=== PATIENT | female | born 1930 | race Hispanic/Latino ===

== ENCOUNTER 2018-10-31 14:08 | Inpatient (IN) | payer OTHER ==
[~2018-10-31] VITALS: Ht 165.1 cm; Wt 61.2 kg
[2018-10-31 15:58] LABS: BASOPHILS % (AUTO) 0.3 % (0.0-5.0); EOSINOPHILS % (AUTO) 0.7 % (0.0-8.0); LYMPHOCYTES % (AUTO) 8.2 % (21.0-51.0); MEAN CORPUSCULAR HEMOGLOBIN 31.5 pg (27.0-33.0); MEAN CORPUSCULAR HGB CONC 33.3 g/dL (32.0-36.0); MEAN CORPUSCULAR VOLUME 94.6 fL (79-99); MONOCYTES % (AUTO) 5.4 % (3.0-13.0); NEUTROPHILS % (AUTO) 85.4 % (40.0-77.0); PLATELET COUNT (AUTO) 178 K/uL (130-400); RED BLOOD CELL COUNT(AUTO) 4.33 MIL/uL (4.00-5.50); RED CELL DISTRIBUTION WIDTH 14.7 % (11.0-15.5); WHITE BLOOD COUNT (AUTO) 10.4 K/uL (4.8-10.8)
[2018-10-31 16:15] LABS: CREATININE 0.8 mg/dL (0.5-1.5); POTASSIUM 3.8 mmol/L (3.5-5.1)
[2018-10-31] MEDS ORDERED: SODIUM CHLORIDE 0.9% 1000ML 1,000 ML IV SCH (17:39)
[2018-10-31] MEDS ORDERED: LACTULOSE 20 GM/30 ML UDCUP PO PRN (17:45)
[2018-10-31] MEDS ORDERED: ONDANSETRON HCL 4 MG/2 ML VIAL IV PRN (17:45)
[2018-10-31 20:00] VITALS: BP 140/63
[2018-10-31 23:55] VITALS: BP 135/63
[2018-11-01] VITALS (7 sets, daily range): BP systolic 113–154; BP diastolic 61–73
[2018-11-01 05:06] LABS: HEMATOCRIT 38.2 % (36-48); MEAN CORPUSCULAR HEMOGLOBIN 32.7 pg (27.0-33.0); MEAN CORPUSCULAR HGB CONC 34.6 g/dL (32.0-36.0); MEAN CORPUSCULAR VOLUME 94.6 fL (79-99); PLATELET COUNT (AUTO) 132 K/uL (130-400); RED BLOOD CELL COUNT(AUTO) 4.04 MIL/uL (4.00-5.50); RED CELL DISTRIBUTION WIDTH 14.8 % (11.0-15.5); WHITE BLOOD COUNT (AUTO) 8.5 K/uL (4.8-10.8)
[2018-11-01 05:16] LABS: ALBUMIN 2.9 g/dL (3.5-5.0); BILIRUBIN,TOTAL 1.1 mg/dL (0.2-1.0); CREATININE 0.7 mg/dL (0.5-1.5); POTASSIUM 3.5 mmol/L (3.5-5.1); TOTAL PROTEIN, SERUM 5.9 g/dL (6.0-8.3)
[2018-11-01] MEDS: FAMOTIDINE/PF 20 MG/2 ML VIAL IV SCH (09:44)
[2018-11-01] MEDS: ENOXAPARIN SODIUM 40 MG/0.4 ML SYRINGE SQ SCH (09:45)
--- NOTE | 2018-11-01 13:34 | NUR ---
DCP CM met with pt and family discussed dc plans. Pt is semi-independent prior to fall and admission, lives at home with spouse and son. Has a cane, shower chair, and walker. Denies any other equipments/services. Pt feels safe to go back home, son and spouse able to assist with transportation and needs as necessary. Offered possible short term placement for rehab, pt and family willing to consider, given in network SNF facilities. Patient and family stated no [facility], but willing to consider [facility] or [facility], would like to discuss w/MD first and with family, then will decide once closer to dc. Given direct contact #[phone] of CM once pt and family decide. DC plan to home vs SNF. Primary nurse aware. CM to cont to follow up. Addendum: 11/01/18 at 1337 by RITESH PELAYO LVN CM Amended: Links added.
[2018-11-01] MEDS: ACETAMINOPHEN 325 MG TAB PO PRN (15:51)
[2018-11-02 03:39] VITALS: BP 135/65
[2018-11-02 04:52] LABS: HEMATOCRIT 36.2 % (36-48); MEAN CORPUSCULAR HEMOGLOBIN 32.2 pg (27.0-33.0); MEAN CORPUSCULAR HGB CONC 34.1 g/dL (32.0-36.0); MEAN CORPUSCULAR VOLUME 94.3 fL (79-99); PLATELET COUNT (AUTO) 129 K/uL (130-400); RED BLOOD CELL COUNT(AUTO) 3.84 MIL/uL (4.00-5.50); RED CELL DISTRIBUTION WIDTH 14.6 % (11.0-15.5); WHITE BLOOD COUNT (AUTO) 7.5 K/uL (4.8-10.8)
[2018-11-02 05:01] LABS: CREATININE 0.7 mg/dL (0.5-1.5); POTASSIUM 3.3 mmol/L (3.5-5.1)
[2018-11-02 08:00] VITALS: BP 142/64
[2018-11-02] MEDS: ENOXAPARIN SODIUM 40 MG/0.4 ML SYRINGE SQ SCH (11:22)
[2018-11-02] MEDS: FAMOTIDINE/PF 20 MG/2 ML VIAL IV SCH (11:22)
[2018-11-02] MEDS: ACETAMINOPHEN 325 MG TAB PO PRN (11:22)
[2018-11-02 11:41] VITALS: BP 128/57
--- NOTE | 2018-11-02 12:52 | NUR ---
SNF In to speak w pt/family regarding SNF. Per pt and family they are now considering the possibility of taking pt up to [place] to receive rehab and be closer to family. Per pt/family they are not ready to sign DAVON/PC consent for local SNFs yet and will inform CM of decision once they discuss options further.
[2018-11-02 16:00] VITALS: BP 128/59
[2018-11-02 20:00] VITALS: BP 141/73
[2018-11-02] MEDS: POTASSIUM CHLORIDE 20 MEQ ERTAB PO SCH (22:44)
[2018-11-03] VITALS (7 sets, daily range): BP systolic 123–151; BP diastolic 61–75
[2018-11-03 05:14] LABS: HEMATOCRIT 36.2 % (36-48); MEAN CORPUSCULAR HEMOGLOBIN 32.1 pg (27.0-33.0); MEAN CORPUSCULAR HGB CONC 34.2 g/dL (32.0-36.0); MEAN CORPUSCULAR VOLUME 93.8 fL (79-99); PLATELET COUNT (AUTO) 147 K/uL (130-400); RED BLOOD CELL COUNT(AUTO) 3.86 MIL/uL (4.00-5.50); RED CELL DISTRIBUTION WIDTH 14.6 % (11.0-15.5); WHITE BLOOD COUNT (AUTO) 6.1 K/uL (4.8-10.8)
[2018-11-03 05:18] LABS: CREATININE 0.6 mg/dL (0.5-1.5); POTASSIUM 3.6 mmol/L (3.5-5.1)
[2018-11-03] MEDS: FAMOTIDINE/PF 20 MG/2 ML VIAL IV SCH (09:28)
[2018-11-03] MEDS: ACETAMINOPHEN 325 MG TAB PO PRN ×2 (09:28→20:49)
[2018-11-03] MEDS: POTASSIUM CHLORIDE 20 MEQ ERTAB PO SCH (09:29)
[2018-11-03] MEDS: ENOXAPARIN SODIUM 40 MG/0.4 ML SYRINGE SQ SCH (09:29)
--- NOTE | 2018-11-03 16:30 | NUR ---
SNF UPDATE: CM f/u w pt/family regarding DCP. Per family ok to refer to SNF in the [facility]. DAVON/PC consent signed for [facility] and [facility]. Call placed to [facility].-per staff they do not have access to the fax number in administrative office for new referrals states will have to callback tomorrow. Fax number obtained for [facility]. Clinical/PASRR faxed, per staff administration will be avail tomorrow to eval. Informed pt and family that dt weekend ins benefits/in-network facilities are not able to be verified until tomorrow. Informed them that facility would have to complete eval and accept pt as well as ins would have to approve admission. They verbalize understanding. Per family they will be able to drive pt up to the [facility]. Informed Dr. Gallego of pt/family request for SNF in the [facility].
[2018-11-03] MEDS: DOCUSATE SODIUM 100 MG CAP PO SCH (20:50)
[2018-11-04 03:30] VITALS: BP 147/68
[2018-11-04 05:29] LABS: HEMATOCRIT 35.8 % (36-48); MEAN CORPUSCULAR HEMOGLOBIN 31.4 pg (27.0-33.0); MEAN CORPUSCULAR HGB CONC 33.8 g/dL (32.0-36.0); MEAN CORPUSCULAR VOLUME 92.8 fL (79-99); NUCLEATED RED BLOOD CELLS 0.1 % (0.0-0.19); PLATELET COUNT (AUTO) 201 K/uL (130-400); RED BLOOD CELL COUNT(AUTO) 3.86 MIL/uL (4.00-5.50); RED CELL DISTRIBUTION WIDTH 14.8 % (11.0-15.5); WHITE BLOOD COUNT (AUTO) 4.8 K/uL (4.8-10.8)
[2018-11-04 05:42] LABS: CREATININE 0.6 mg/dL (0.5-1.5); POTASSIUM 3.5 mmol/L (3.5-5.1)
--- NOTE | 2018-11-04 07:50 | NUR ---
RECEIVED IN BED SEMI-MONGE'S POSITION ALERT AND AWAKE WITH NO RESPIRATORY DISTRESS ON ROOM AIR. SPOUSE IS AT THE BEDSIDE ATTENDING TO HER. PATIENT DENIES PAIN AT THIS TIME. PLAN OF CARE DISCUSSED.
[2018-11-04 08:00] VITALS: BP 153/70
[2018-11-04] MEDS: DOCUSATE SODIUM 100 MG CAP PO SCH ×2 (08:39→20:43)
[2018-11-04] MEDS: FAMOTIDINE/PF 20 MG/2 ML VIAL IV SCH (08:39)
[2018-11-04] MEDS: ENOXAPARIN SODIUM 40 MG/0.4 ML SYRINGE SQ SCH (08:42)
--- NOTE | 2018-11-04 09:55 | NUR ---
PHYSICAL THERAPIST CAME TO EVALUATE THE PATIENT AND ASSISTED HER IN THE CHAIR. FAMILY IS PRESENT AT THE BEDSIDE.
[2018-11-04 11:00] VITALS: BP 134/71
[2018-11-04] MEDS: ACETAMINOPHEN 325 MG TAB PO PRN ×2 (11:00→20:42)
[2018-11-04 16:00] VITALS: BP 148/77
[2018-11-04 19:46] VITALS: BP 152/73
--- NOTE | 2018-11-04 20:07 | NUR ---
cm snf ptsdaughter and son present, wish to go [facility] ,per alix,/ have okayed for her to travel by vehicle. Dtr aware they would have to pay for EMS transport , unless they ok by md private vehicle. they asked this cm to send referrals to [facility] and rehab, and [facility] and rehab, after several referrals, they finally decided 1st choice is to [facility] contact is Jessie WILLARD RN ph#[phone] [facility] [phone] and second choice [facility] ph [phone] contact is anil. Both facilities were contacting pts daughter to be able to submit. For auth. Dtr to decide.
[2018-11-05] VITALS: BP 153/72
[2018-11-05 04:00] VITALS: BP 151/80
[2018-11-05 04:24] LABS: HEMATOCRIT 36.5 % (36-48); MEAN CORPUSCULAR HEMOGLOBIN 32.2 pg (27.0-33.0); MEAN CORPUSCULAR HGB CONC 34.6 g/dL (32.0-36.0); MEAN CORPUSCULAR VOLUME 93.2 fL (79-99); PLATELET COUNT (AUTO) 201 K/uL (130-400); RED BLOOD CELL COUNT(AUTO) 3.92 MIL/uL (4.00-5.50); RED CELL DISTRIBUTION WIDTH 14.5 % (11.0-15.5); WHITE BLOOD COUNT (AUTO) 4.8 K/uL (4.8-10.8)
[2018-11-05 04:42] LABS: CREATININE 0.7 mg/dL (0.5-1.5); POTASSIUM 3.6 mmol/L (3.5-5.1)
[2018-11-05 08:24] VITALS: BP 147/73
[2018-11-05] MEDS: ACETAMINOPHEN 325 MG TAB PO PRN ×2 (08:56→20:48)
[2018-11-05] MEDS: FAMOTIDINE/PF 20 MG/2 ML VIAL IV SCH (08:56)
[2018-11-05] MEDS: DOCUSATE SODIUM 100 MG CAP PO SCH ×2 (08:56→20:43)
[2018-11-05] MEDS: ENOXAPARIN SODIUM 40 MG/0.4 ML SYRINGE SQ SCH (08:57)
[2018-11-05 11:51] VITALS: BP 140/67
[2018-11-05 15:50] VITALS: BP 153/66
[2018-11-05 20:00] VITALS: BP 148/66
[2018-11-06] VITALS: BP 172/76
[2018-11-06 04:00] VITALS: BP 154/61
[2018-11-06 04:44] LABS: HEMATOCRIT 36.2 % (36-48); MEAN CORPUSCULAR HEMOGLOBIN 31.2 pg (27.0-33.0); MEAN CORPUSCULAR HGB CONC 33.5 g/dL (32.0-36.0); MEAN CORPUSCULAR VOLUME 93.2 fL (79-99); PLATELET COUNT (AUTO) 230 K/uL (130-400); RED BLOOD CELL COUNT(AUTO) 3.88 MIL/uL (4.00-5.50); RED CELL DISTRIBUTION WIDTH 14.6 % (11.0-15.5); WHITE BLOOD COUNT (AUTO) 5.4 K/uL (4.8-10.8)
[2018-11-06 04:56] LABS: CREATININE 0.7 mg/dL (0.5-1.5); POTASSIUM 3.5 mmol/L (3.5-5.1)
[2018-11-06 08:00] VITALS: BP 145/74
[2018-11-06] MEDS: DOCUSATE SODIUM 100 MG CAP PO SCH ×2 (10:37→21:31)
[2018-11-06] MEDS: FAMOTIDINE/PF 20 MG/2 ML VIAL IV SCH (10:37)
[2018-11-06] MEDS: ENOXAPARIN SODIUM 40 MG/0.4 ML SYRINGE SQ SCH (10:38)
[2018-11-06] MEDS: ACETAMINOPHEN 325 MG TAB PO PRN (10:39)
--- NOTE | 2018-11-06 10:48 | NUR ---
CM Note: [facility] pending ins auth Spoke to Jessie Serrano RN CM [phone] w/[facility]. Updated clinicals received, pt currently pending ins auth at this time. Primary nurse aware. CM to cont to follow up.
[2018-11-06 11:00] VITALS: BP 138/61
--- NOTE | 2018-11-06 14:17 | NUR ---
RDSCREEN - LOS X 6 Pt admitted for hip fracture. Pt tolerating Soft diet with no report of GI distress and Fair PO intake (50%). Pt LBM 11/04/18. Pt monitored labs: Ca 10.3, Alb 2.9. RD to continue to monitor. Please notify EDIE as nutritional concerns arise. Thank you. Addendum: 11/06/18 at [address] Amended: Links added.
--- NOTE | 2018-11-06 14:26 | NUR ---
CM Note: [facility] Spoke to Germaine anthony/ [facility] . Pt has ins auth good for 48hrs. Aware patient will be a very late admission tomorrow after midnight as son will take pt on a rental vehicle comming from [place]. As per Germaine will have nurse available to accept patient late tomorrow. Primary nurse aware to give report and sent med recon before 5pm prior to pt discharge so that med will be available for pt upon arrival to facility. Primary nurse aware. CM to cont to follow up.
[2018-11-06] MEDS ORDERED: CLONIDINE HCL 0.1 MG TABLET PO PRN (14:45)
[2018-11-06] MEDS ORDERED: AMLODIPINE BESYLATE 5 MG TAB PO SCH (14:45)
[2018-11-06 16:00] VITALS: BP 150/77
[2018-11-06 20:00] VITALS: BP 174/81
[2018-11-07] VITALS: BP 136/58
[2018-11-07 04:04] VITALS: BP 146/67
[2018-11-07 05:02] LABS: HEMATOCRIT 35.9 % (36-48); MEAN CORPUSCULAR HEMOGLOBIN 32.3 pg (27.0-33.0); MEAN CORPUSCULAR HGB CONC 34.7 g/dL (32.0-36.0); MEAN CORPUSCULAR VOLUME 93.1 fL (79-99); PLATELET COUNT (AUTO) 262 K/uL (130-400); RED BLOOD CELL COUNT(AUTO) 3.86 MIL/uL (4.00-5.50); RED CELL DISTRIBUTION WIDTH 14.5 % (11.0-15.5); WHITE BLOOD COUNT (AUTO) 5.8 K/uL (4.8-10.8)
[2018-11-07 05:10] LABS: CREATININE 0.7 mg/dL (0.5-1.5); POTASSIUM 3.4 mmol/L (3.5-5.1)
[2018-11-07] MEDS ORDERED: POTASSIUM CHLORIDE 20 MEQ ERTAB PO ONE (05:57)
[2018-11-07] MEDS ORDERED: POTASSIUM CHLORIDE 20 MEQ ERTAB PO PRN (06:00)
[2018-11-07] MEDS ORDERED: LIDOCAINE HCL-MPF 1% 2ML VIAL IVP PRN (06:00)
[2018-11-07] MEDS ORDERED: POTASSIUM CHLORIDE 10% ELIXIR 20 MEQ/15 ML UDCUP PO PRN (06:00)
[2018-11-07] MEDS ORDERED: POTASSIUM CHLORIDE 20MEQ/100ML 100 ML IV PRN (06:00)
[2018-11-07 08:00] VITALS: BP 144/73
[2018-11-07] MEDS: FAMOTIDINE/PF 20 MG/2 ML VIAL IV SCH (08:54)
[2018-11-07] MEDS: ENOXAPARIN SODIUM 40 MG/0.4 ML SYRINGE SQ SCH (08:55)
[2018-11-07] MEDS: ACETAMINOPHEN 325 MG TAB PO PRN ×2 (08:56→16:42)
[2018-11-07] MEDS ORDERED: AMLODIPINE BESYLATE 5 MG TAB PO SCH (09:00)
[2018-11-07] MEDS: DOCUSATE SODIUM 100 MG CAP PO SCH (09:00)
[2018-11-07 12:00] VITALS: BP 130/60
[2018-11-07] MEDS ORDERED: MECLIZINE HCL 25 MG TABLET PO SCH (13:45)
[2018-11-07 16:00] VITALS: BP 147/62
[2018-11-07] MEDS ORDERED: ALPRAZOLAM 0.25 MG TABLET PO ONE (17:15)
--- NOTE | 2018-11-07 18:52 | NUR ---
IV CATHETER REMOVED FROM LEFT ANTERIOR FOREARM. CATHETER INTACT, PT TOLERATED WELL. PT AWAITING PRIVATE CAR TO TRANSPORT PATIENT.
== END 2018-11-07 19:20 | DRG 536 ==
LOC: EDH 14:08 → EDHIP 17:39 → 4CH 20:19
PROVIDERS: ADMIT Hospitalist; ATTEND Hospitalist
DX: S32.591A Other specified fracture of right pubis, initial encounter for closed fracture (principal); E87.6 Hypokalemia; I10 Essential (primary) hypertension; W19.XXXA Unspecified fall, initial encounter; Y93.01 Activity, walking, marching and hiking; Y92.098 Other place in other non-institutional residence as the place of occurrence of the external cause; Y99.8 Other external cause status; Z98.42 Cataract extraction status, left eye; Z98.41 Cataract extraction status, right eye
CPT/HCPCS: 36415; 70450; 71045; 73502; 73700; 80048; 80053; 85025; 85027; 97039; G0378; J1650; J3490